=== PATIENT | male | born 1955 | race Caucasian/White ===

== ENCOUNTER → 2019-01-20 08:43 | Outpatient (CLI) | payer MEDICARE, OTHER, SELFPAY ==
--- NOTE | 2019-01-20 | DI.US.S_ITS ---
PROCEDURE: US ABD AORTA ANEURYSM SCREEN INDICATIONS: SCREEN TECHNIQUE: Real time scanning was performed of the aorta and iliac arteries, with image documentation. COMPARISON: None. FINDINGS: Aorta: Proximal aorta is not seen, secondary to overlying bowel gas. Mid-aorta measures 1.8 cm. Distal aortic diameter is 1.7 cm. Iliac arteries: Right common iliac artery measures 1.2 cm. Left common iliac artery measures 1.1 cm. IMPRESSION: Negative for aneurysm. Dictated by: Gil Morales M.D. on 01/20/2019 at 9:11 Approved by: Gil Morales M.D. on 01/20/2019 at 9:11
== END ==
PROVIDERS: PCP Nurse Practitioner Family; Visit Provider Nurse Practitioner Family
DX: Z13.6 Encounter for screening for cardiovascular disorders (principal)
CPT/HCPCS: 76706

== ENCOUNTER → 2022-02-13 09:49 | Outpatient (CLI) | payer MEDICARE, OTHER, SELFPAY ==
--- NOTE | 2022-02-13 09:52 | DI.NM.S_ITS ---
PROCEDURE: NM VERÓNICA PERF SPECT REST & STR Rest and exercise myocardial perfusion SPECT with gated imaging and ejection fraction RADIOPHARMACEUTICAL: 12.1 mCi Tc-99m sestamibi IV at rest and 26.8 mCi Tc-99m sestamibi IV at peak exercise. A one day-protocol was performed. INDICATIONS: Abnormal EKG TECHNIQUE: Radiopharmaceutical was injected at peak stress test, and also at rest. SPECT images were obtained. SPECT myocardial perfusion images were displayed in short axis, horizontal long axis, and vertical long axis views. Gated images were reviewed using [employer] software. COMPARISON: None. CARDIAC STRESS: A standard José Manuel treadmill exercise tolerance test was performed by the patient under the supervision of an attending staff. The patient exercised for 5 minutes and 53 seconds; functional aerobic impairment (ALEXANDRA) is +17%. Hemodynamic data: There is normal blood pressure and heart rate response to exercise stress. Patient achieved 88% of maximum predicted heart rate at peak exercise. Symptoms: Patient denied chest pain during exercise. 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 There were moderate downsloping ST depressions in the lateral leads with exercise. Frequent PACs during recovery. FINDINGS: Raw data: There is good myocardial labeling by radiotracer. No significant motion artifacts. Left ventricle function: Gated images demonstrate mild hypokinesis of the apical inferior wall. No transient ischemic dilation; TID is 0.9 (normal less than 1.3). The left ventricle resting end-diastolic volume is 154 mL. Left ventricle stress ejection fraction is 63%; normal values are above 45%. Myocardial perfusion: There is a severe fixed inferior and apical wall defect that improves significantly with prone but doesn't resolve in the inferoapex, suggesting prior non-transmural infarction. No ischemia. IMPRESSION: Abnormal nuclear stress test consistent with prior infarction. No ischemia. 1) There is a severe fixed inferior and apical wall defect that improves significantly with prone but doesn't resolve in the inferoapex, suggesting prior non-transmural infarction. No ischemia. 2) Enlarged left ventricle (resting EDV 154cc) with normal systolic function (EF post stress 63%). Mild hypokinesis of the apical inferior wall noted. 3) Moderate down-sloping ST depressions in the lateral leads with exercise. 4) No angina during the study. 5) Reduced exercise tolerance (7.0 METs, ALEXANDRA +17%). Target heart rate achieved. Appropriate BP response to exercise. 6) No prior nuclear stress test available for comparison. Dictated by: Shawn Douglass MD on 02/13/2022 at 16:46 Approved by: Shawn Douglass MD on 02/13/2022 at 16:51
[2022-02-13 10:26] LABS: COVID19 -Nasal RAPID Negative (Negative)
== END ==
PROVIDERS: PCP Nurse Practitioner Family; Referring Provider Internal Medicine Cardiovascular Disease; Visit Provider Internal Medicine Cardiovascular Disease
DX: R94.39 Abnormal result of other cardiovascular function study (principal); R94.31 Abnormal electrocardiogram [ECG] [EKG]; I51.7 Cardiomegaly; Z20.822 Contact with and (suspected) exposure to COVID-19
CPT/HCPCS: 78452; 87635; 93017; A9502